=== PATIENT | male | born 1950 | race Two or more races ===

== ENCOUNTER 2022-07-10 11:00 | Inpatient (IN) | payer MEDICARE, OTHER ==
[~2022-07-10] VITALS: Ht 165.1 cm; Wt 56.7 kg
--- NOTE | 2022-07-10 11:05 | NUR ---
Receved pt 71 yrs male came from home c/o pain and inected wound in both lower extramity pt here for iv antbiotic
[2022-07-10] MEDS ORDERED: VANCOMYCIN 1 GM in IV D5W 250 ML IV ONE (11:30)
[2022-07-10] MEDS ORDERED: PIPERACILLIN /TAZOBACTAM 3.375 G in IV D5W 50 ML IV ONE (11:30)
--- NOTE | 2022-07-10 11:33 | NUR ---
safe technician at bedside
[2022-07-10 12:23] LABS: BASOPHILS # (AUTO) 0.1 K/uL (0.0-0.2); BASOPHILS % (AUTO) 0.7 % (0.0-2.0); EOSINOPHILS % (AUTO) 0.1 % (0.0-6.0); HEMATOCRIT 39 % (39-51); HEMOGLOBIN 12.7 g/dL (13.5-17.5); LYMPHOCYTES # (AUTO) 0.5 K/uL (0.8-4.8); LYMPHOCYTES % (AUTO) 4.7 % (20.0-44.0); MEAN CORPUSCULAR HGB CONC 32 g/dl (31.0-36.0); MEAN CORPUSCULAR VOLUME 92 fL (80-96); MONOCYTES # (AUTO) 0.8 K/uL (0.1-1.30); MONOCYTES % (AUTO) 6.6 % (2.0-12.0); NEUTROPHILS # (AUTO) 10.1 K/uL (1.8-8.9); NEUTROPHILS % (AUTO) 87.9 % (43.0-81.0); PLATELET COUNT (AUTO) 365 K/uL (150-450); RED BLOOD CELL COUNT(AUTO) 4.29 MIL/uL (4.5-6.0); WHITE BLOOD COUNT (AUTO) 11.5 K/uL (4.3-11.0)
--- NOTE | 2022-07-10 12:30 | NUR ---
[facility] CALLED BEE FARMER PAGED.
--- NOTE | 2022-07-10 12:30 | NUR ---
MOVE SHEET SUBMITTED.
[2022-07-10 12:49] LABS: ALBUMIN 3.4 g/dL (3.4-5.0); BILIRUBIN,DIRECT 0.1 mg/dL (0.0-0.2); BILIRUBIN,TOTAL 0.3 mg/dL (0.2-1.0); CALCIUM, SERUM 8.7 mg/dL (8.5-10.1); CREATININE 1.4 mg/dL (0.6-1.3); POTASSIUM 3.7 mmol/L (3.5-5.1); TOTAL PROTEIN, SERUM 7.2 g/dL (6.4-8.2)
--- NOTE | 2022-07-10 13:10 | NUR ---
RAPID COVID SWAB DONE AND SENT TO LAB
[2022-07-10] MEDS ORDERED: MORPHINE SULFATE INJ 2 MG/ML DISP.SYRIN IV PRN ×2 (13:30→16:45)
[2022-07-10] MEDS ORDERED: ONDANSETRON HCL/PF 4 MG/2 ML VIAL IVP PRN ×2 (13:30→16:45)
[2022-07-10] MEDS ORDERED: Z GUARD REMEDY 4 OZ OINT TP PRN ×2 (13:30→17:00)
[2022-07-10] MEDS ORDERED: hydrALAZINE HCL IV 20 MG VIAL IV PRN ×2 (13:30→16:45)
[2022-07-10] MEDS ORDERED: ACETAMINOPHEN 325 MG TABLET PO PRN ×2 (13:30→16:45)
[2022-07-10] MEDS: IV NS 0.9% 1,000 ML IV SCH (13:34)
--- NOTE | 2022-07-10 13:58 | NUR ---
RESTING AND COMFORTALE AT THIS TIME NO SOB
--- NOTE | 2022-07-10 15:09 | NUR ---
HAND OFF BRADLEY YUEN TO ROOM 328-2 VIA GARCARMITA STABLE VS NO FEVER
[2022-07-10] MEDS ORDERED: CEFTRIAXONE 2 G in IV D5W 100 ML IV SCH (16:00)
[2022-07-10] MEDS ORDERED: DOCUSATE SODIUM LIQ 100 MG/10 ML UDC PO SCH (17:00)
--- NOTE | 2022-07-10 19:00 | NUR ---
RN CLOSING NOTE PATIENT CAME FROM HOME BY [facility] FOR THE WOUND CARE AND FROM THERE HE WAS SENT TO [facility] FOR THE ANTIBIOTIC THERAPY DUE TO HIS LOWER EXTREMITIES ULCER. PATIENT HAS DVT ON BOTH LEGS AND ON HEPARIN. PATIENT ON REGULAR DIET. PATIENT'S IV SITE CODI 18G INTACT AND FLUSHING. PATIENT ALERT ORIENTED X4. AMBULATORY WITH LITHOPONE MILL WORKER TO BE MORE SAFE. ALL SAFETY PRECAUTIONS IMPLEMENTED AND WILL ENDORSE THE PATIENT TO THE PLEAT TAPER NURSE FOR ARIC.
[2022-07-10 20:00] VITALS: BP 152/62
--- NOTE | 2022-07-10 20:00 | NUR ---
RN CLOSING NOTE RECEIVED PATIENT AWAKE IN BED. A/O X 4. BREATING ON ROOM AIR, EVEN AND UNLABORED. PATIENT ON REGULAR DIET. PATIENT'S IV SITE CODI 18G INTACT AND FLUSHING. AMBULATORY WITH CUSTOMER CARE ASSISTANT TO BE MORE SAFE. ALL SAFETY PRECAUTIONS IMPLEMENTED, SIDE RAILS UP, BED LOWERED AND LOCKED. WILL CONTINUE TO MONITOR THROUGHOUT THE SHIFT. Addendum: 07/11/22 at 0704 by JOANNA NORTH RN RN OPENING NOTES
[2022-07-10] MEDS ORDERED: MEROPENEM 1 G in IV NS 0.9% 100 ML IV SCH (21:00)
[2022-07-10] MEDS ORDERED: HEPARIN SODIUM, PORCINE 5000 UNITS/1 ML VIAL SQ SCH (21:00)
[2022-07-10] MEDS: CEFTRIAXONE 2 G in IV D5W 100 ML IV SCH (21:13)
[2022-07-10] MEDS: HEPARIN SODIUM, PORCINE 5000 UNITS/1 ML VIAL SQ SCH (21:52)
[2022-07-11] VITALS: BP 144/75
[2022-07-11] MEDS ORDERED: VANCOMYCIN 500 MG in IV D5W 100 ML IV SCH ×2
[2022-07-11] MEDS: VANCOMYCIN 500 MG in IV D5W 100 ML IV SCH ×2 (00:07→12:24)
[2022-07-11] MEDS: IV NS 0.9% 1,000 ML IV SCH (02:41)
[2022-07-11 04:00] VITALS: BP 141/81
--- NOTE | 2022-07-11 07:05 | NUR ---
RN CLOSING NOTE PATIENT AWAKE IN BED. A/O X 4. BREATHING ON ROOM AIR, EVEN AND UNLABORED. PATIENT ON REGULAR DIET. PATIENT'S IV SITE CODI 18G INTACT AND FLUSHING. AMBULATORY WITH DEVULCANIZER OPERATOR TO BE MORE SAFE. ALL SAFETY PRECAUTIONS IMPLEMENTED, SIDE RAILS UP, BED LOWERED AND LOCKED. WILL ENDORSE TO NEXT SHIFT RN FOR ARIC.
[2022-07-11 08:00] VITALS: BP 129/74
[2022-07-11] MEDS: POLYETHYLENE GLYCOL 3350 17 GM POWD.PACK PO SCH (08:37)
[2022-07-11] MEDS: DOCUSATE SODIUM LIQ 100 MG/10 ML UDC PO SCH ×2 (08:37→17:09)
[2022-07-11] MEDS: HEPARIN SODIUM, PORCINE 5000 UNITS/1 ML VIAL SQ SCH (08:41)
[2022-07-11] MEDS ORDERED: POLYETHYLENE GLYCOL 3350 17 GM POWD.PACK PO SCH (09:00)
[2022-07-11 11:05] LABS: BASOPHILS % (AUTO) 0.8 % (0.0-2.0); EOSINOPHILS % (AUTO) 1.3 % (0.0-6.0); HEMATOCRIT 40 % (39-51); LYMPHOCYTES # (AUTO) 0.6 K/uL (0.8-4.8); MEAN CORPUSCULAR HGB CONC 32 g/dl (31.0-36.0); MEAN CORPUSCULAR VOLUME 92 fL (80-96); MONOCYTES # (AUTO) 0.6 K/uL (0.1-1.30); MONOCYTES % (AUTO) 9.3 % (2.0-12.0); NEUTROPHILS # (AUTO) 4.6 K/uL (1.8-8.9); NEUTROPHILS % (AUTO) 78.6 % (43.0-81.0); PLATELET COUNT (AUTO) 370 K/uL (150-450); WHITE BLOOD COUNT (AUTO) 5.9 K/uL (4.3-11.0)
[2022-07-11 11:14] LABS: CALCIUM, SERUM 8.5 mg/dL (8.5-10.1); CREATININE 1.4 mg/dL (0.6-1.3); POTASSIUM 3.7 mmol/L (3.5-5.1)
[2022-07-11] MEDS: APIXABAN 5 MG TABLET PO SCH ×2 (11:55→17:33)
[2022-07-11] MEDS: ENSURE ENLIVE CHOC 237 ML CAN PO SCH ×2 (12:02→17:10)
[2022-07-11 12:11] VITALS: BP 134/84
[2022-07-11 16:00] VITALS: BP 114/69
[2022-07-11] MEDS: CEFTRIAXONE 2 G in IV D5W 100 ML IV SCH (17:10)
[2022-07-11 20:00] VITALS: BP 121/66
--- NOTE | 2022-07-11 20:08 | NUR ---
APPRENTICE PAINTER HAND OPENING NOTES: RECEIVED PATIENT AWAKE IN BED , BED IN LOW POSITION CALL LIGHTS WITHIN REACH,. NO COMPLAIN OF PAIN AND DISCOMFORT AT THIS TIME, ON ROOM AIR SATURATING WELL, PATIENT IS A/OX4 ABLE TO MAKE NEEDS KNOWN,, AMBULATORY WITH ASSISTANCE, ON TELE MONITOR SR WITH PVC-60 NO SYMPTOMS WAS OBSERVED, PATIENT KEPT CLEAN AND DRY ALL NEEDS MET WILL CONTINUE TO MONITOR.
[2022-07-12] VITALS: BP 130/75
[2022-07-12 00:09] VITALS: BP 130/75
[2022-07-12] MEDS: VANCOMYCIN 500 MG in IV D5W 100 ML IV SCH (00:14)
[2022-07-12 04:00] VITALS: BP 128/89
[2022-07-12 05:53] LABS: BASOPHILS % (AUTO) 0.6 % (0.0-2.0); EOSINOPHILS % (AUTO) 3.4 % (0.0-6.0); HEMATOCRIT 38 % (39-51); HEMOGLOBIN 12.6 g/dL (13.5-17.5); LYMPHOCYTES # (AUTO) 0.8 K/uL (0.8-4.8); LYMPHOCYTES % (AUTO) 12.7 % (20.0-44.0); MEAN CORPUSCULAR HGB CONC 33 g/dl (31.0-36.0); MEAN CORPUSCULAR VOLUME 91 fL (80-96); MONOCYTES # (AUTO) 0.9 K/uL (0.1-1.30); MONOCYTES % (AUTO) 15.8 % (2.0-12.0); NEUTROPHILS % (AUTO) 67.5 % (43.0-81.0); PLATELET COUNT (AUTO) 331 K/uL (150-450); RED BLOOD CELL COUNT(AUTO) 4.14 MIL/uL (4.5-6.0)
--- NOTE | 2022-07-12 07:55 | NUR ---
HUC NOTES: PATIENT SLEEP IN BED COMFORTABLY AROUSABLE TO VERBAL STIMULI, BED IN LOW POSITION, CALL LIGHTS WITHIN REACH, ON TELE MONITOR,[id number], NO CHANGES WAS OBSERVED, BILATERAL LOWER EXTREMITY DRESSING INTACT, NO BLEEDING WAS OBSERVED, KEPT CLEAN AND DRY ALL NEEDS MET ENDORSE TO INCOMING SHIFT.
[2022-07-12 08:00] LABS: ALANINE AMINOTRANSFERASE 8 U/L (12-78); ALBUMIN 2.7 g/dL (3.4-5.0); ALKALINE PHOSPHATASE 62 U/L (46-116); ASPARTATE AMINOTRANSFERASE 11 U/L (15-37); BILIRUBIN,TOTAL 0.3 mg/dL (0.2-1.0); CALCIUM, SERUM 8.7 mg/dL (8.5-10.1); CARBON DIOXIDE 28 mmol/L (21-32); CREATININE 1.3 mg/dL (0.6-1.3); GLUCOSE 95 mg/dL (74-106); POTASSIUM 4.3 mmol/L (3.5-5.1); SODIUM SERUM 146 mmol/L (136-145); TOTAL PROTEIN, SERUM 6.3 g/dL (6.4-8.2); UREA NITROGEN, BLOOD 20 mg/dL (7-18)
--- NOTE | 2022-07-12 08:06 | NUR ---
TRUCK DRIVING INSTRUCTOR OPENING NOTE Patient in bed, awake. A/O x 4, able to make needs known. On room air, breathing evenly and unlabored. IV access on CODI SL, intact and patent. On tele monitoring showing SR, HR 67. Dressing on bilateral feet c/d/i. Safety precautions in place: be din low, locked position; siderails up x 2; call light within reach. Will continue to monitor.
[2022-07-12 08:22] VITALS: BP 120/71
[2022-07-12] MEDS: ENSURE ENLIVE CHOC 237 ML CAN PO SCH ×2 (08:42→12:07)
[2022-07-12] MEDS: APIXABAN 5 MG TABLET PO SCH (08:43)
[2022-07-12] MEDS: DOCUSATE SODIUM LIQ 100 MG/10 ML UDC PO SCH (08:45)
[2022-07-12] MEDS: POLYETHYLENE GLYCOL 3350 17 GM POWD.PACK PO SCH (08:45)
[2022-07-12 09:08] LABS: BAND % (MANUAL) 1 % (0.0-5.0); EOSINOPHILS % (MANUAL) 2 % (0-4); LYMPHOCYTES % (MANUAL) 10 % (16-48); MONOCYTES % (MANUAL) 11 % (0-11.0); NEUTROPHILS % (MANUAL) 76 (42-76)
[2022-07-12] MEDS ORDERED: SULF1TAB48 PO (10:03)
[2022-07-12] MEDS ORDERED: APIX5TAB PO (10:03)
[2022-07-12] MEDS ORDERED: VANCOMYCIN HCL 0.75 GM in IV D5W 250 ML IV SCH (12:00)
[2022-07-12 12:13] VITALS: BP 118/60
--- NOTE | 2022-07-12 15:02 | NUR ---
DISCHARGE NOTE Received order for discharge. Patient is A/O x 4, able to make needs known. Stable on room air, breathing evenly and unlabored. No SOB or s/s of distress noted. Discharge instructions given both verbally and in written form, verbalized understanding. All belongings accounted for, belonging sheet signed. Wound care done on bilateral ankles. Photos taken of wounds and placed in chart. IV access removed, pressure dressing applied. ID band removed. Patient denies any pain or discomfort at this time. Patient left in stable condition via private car.
== END 2022-07-12 14:59 | disposition home or self-care (01) | DRG 299 ==
LOC: ER 11:10 → MED 17:09 → TELE 07-11 03:33
PROVIDERS: ADMIT Internal Medicine; ATTEND Internal Medicine
DX: I87.312 Chronic venous hypertension (idiopathic) with ulcer of left lower extremity (principal); N17.0 Acute kidney failure with tubular necrosis; L03.115 Cellulitis of right lower limb; L97.319 Non-pressure chronic ulcer of right ankle with unspecified severity; L97.329 Non-pressure chronic ulcer of left ankle with unspecified severity; I82.512 Chronic embolism and thrombosis of left femoral vein; E87.0 Hyperosmolality and hypernatremia; L03.116 Cellulitis of left lower limb; N18.9 Chronic kidney disease, unspecified; I73.9 Peripheral vascular disease, unspecified; L30.9 Dermatitis, unspecified; Z79.01 Long term (current) use of anticoagulants; Z91.199 Patient's noncompliance with other medical treatment and regimen due to unspecified reason
CPT/HCPCS: 36415; 73610-TC; 73630-TC; 80048-TC; 80053-TC; 80076-TC; 80202-TC; 83605-TC; 85025-TC; 85652-TC; 86140-TC; 87040-TC; 87081-TC; 87806; 93970-TC; 97112-TC; 97116-TC; 97530-TC; A6253; C9803; G0378; J0696; J1644; J2543; J3370; J7030; J7060

== ENCOUNTER 2023-03-19 10:21 | Inpatient (IN) | payer MEDICARE, OTHER ==
[~2023-03-19] VITALS: Ht 175.3 cm; Wt 52.6 kg
[~2023-03-19 10:21] MED LIST: APIX5TAB PO; SULF1TAB48 PO
--- NOTE | 2023-03-19 10:30 | NUR ---
RECEIVED PT 72 YRS MALE FROM HOME C/O PAIN AND SWALLEN ON BOTH FOOT OZZING AND AND DRAING smilly and dry
--- NOTE | 2023-03-19 11:00 | NUR ---
AT BED SIDE
--- NOTE | 2023-03-19 11:16 | NUR ---
MOVE SHEET SUBMITTED.
[2023-03-19] MEDS ORDERED: PIPERACILLIN /TAZOBACTAM 3.375 G in IV D5W 50 ML IV ONE (11:30)
[2023-03-19] MEDS ORDERED: VANCOMYCIN 1 GM in IV D5W 250 ML IV ONE (11:30)
[2023-03-19 11:34] LABS: BASOPHILS # (AUTO) 0.1 K/uL (0.0-0.2); BASOPHILS % (AUTO) 0.7 % (0.0-2.0); EOSINOPHILS % (AUTO) 0.1 % (0.0-6.0); HEMATOCRIT 44 % (39-51); HEMOGLOBIN 14.4 g/dL (13.5-17.5); LYMPHOCYTES # (AUTO) 0.5 K/uL (0.8-4.8); LYMPHOCYTES % (AUTO) 4.6 % (20.0-44.0); MEAN CORPUSCULAR HGB CONC 33 g/dl (31.0-36.0); MEAN CORPUSCULAR VOLUME 93 fL (80-96); MONOCYTES # (AUTO) 0.9 K/uL (0.1-1.30); MONOCYTES % (AUTO) 9.2 % (2.0-12.0); NEUTROPHILS # (AUTO) 8.5 K/uL (1.8-8.9); NEUTROPHILS % (AUTO) 85.4 % (43.0-81.0); PLATELET COUNT (AUTO) 356 K/uL (150-450); RED BLOOD CELL COUNT(AUTO) 4.76 MIL/uL (4.5-6.0)
[2023-03-19 11:40] LABS: CALCIUM, SERUM 9.8 mg/dL (8.5-10.1); CARBON DIOXIDE 21 mmol/L (21-32); CHLORIDE 110 mmol/L (98-107); CREATININE 1.8 mg/dL (0.6-1.3); GLUCOSE 97 mg/dL (74-106); POTASSIUM 4.1 mmol/L (3.5-5.1); SODIUM SERUM 143 mmol/L (136-145); UREA NITROGEN, BLOOD 35 mg/dL (7-18)
[2023-03-19 11:48] LABS: ALANINE AMINOTRANSFERASE 11 U/L (12-78); ALBUMIN 4.1 g/dL (3.4-5.0); ALKALINE PHOSPHATASE 73 U/L (46-116); ASPARTATE AMINOTRANSFERASE 8 U/L (15-37); BILIRUBIN,DIRECT 0.1 mg/dL (0.0-0.2); BILIRUBIN,TOTAL 0.4 mg/dL (0.2-1.0); TOTAL PROTEIN, SERUM 8.3 g/dL (6.4-8.2)
[2023-03-19] MEDS ORDERED: MAGN400T8 PO (11:49)
[2023-03-19] MEDS ORDERED: CHOL100043 PO (11:49)
[2023-03-19] MEDS ORDERED: ASPI-992 PO (11:49)
[2023-03-19] MEDS ORDERED: ASCO100058 PO (11:49)
--- NOTE | 2023-03-19 14:13 | NUR ---
RESTING AND COMFORTABLE AT THIS TIME
--- NOTE | 2023-03-19 14:42 | NUR ---
HAND OFF MARJORIE RN TO ROOM 117-2 VIA GARNY STABLE VS AND AWAKE AND ALERT
--- NOTE | 2023-03-19 15:45 | NUR ---
RECEIVED PATIENT FROM ER VIA GURNEY. PT ALERT AND ORIENTED X 4, VERBALLY RESPONSIVE AND COOPERATIVE. BILATERAL LOWER EXTREMITIES CELLULITIS AND WOUNDS, PICTURES FILED IN THE CHART. PT IS ON RA, SAT 97%. IV ACCESS RIGHT AC, SALINE LOCKED. WILL START IV 1/2 NS AND ANTIBIOTIC. WILL CONTINUE TO MONITOR.
[2023-03-19] MEDS ORDERED: Z GUARD REMEDY 4 OZ OINT TP PRN (16:00)
[2023-03-19] MEDS ORDERED: ONDANSETRON HCL/PF 4 MG/2 ML VIAL IVP PRN (16:00)
[2023-03-19] MEDS ORDERED: MORPHINE SULFATE INJ 2 MG/ML DISP.SYRIN IV PRN (16:00)
[2023-03-19] MEDS: IV 1/2NS 1000 ML 1,000 ML IV PRN (16:21)
[2023-03-19] MEDS: CEFTRIAXONE 2 G in IV D5W 100 ML IV SCH (16:22)
[2023-03-19] MEDS ORDERED: CHOLECALCIFEROL 1,000 UNIT TABLET (VIT D3) PO SCH (16:30)
--- NOTE | 2023-03-19 19:23 | NUR ---
RN CLOSING NOTE PT AWAKE IN BED, ON RA, SAT 97%. IV ACCESS RIGHT AC, SALINE LOCKED. WILL START IV 1/2 NS AND ANTIBIOTIC. WILL CONTINUE TO MONITOR.
[2023-03-19] MEDS: HEPARIN SODIUM, PORCINE 5000 UNITS/1 ML VIAL SQ SCH (21:26)
[2023-03-19 23:47] VITALS: BP 114/68; TEMP 98.6; O2SAT 99
--- NOTE | 2023-03-20 03:42 | NUR ---
CANNOT OBTAIN A GOOD WOUND SAMPLE. PATIENT'S BILA. LOWER EXTREMITY WOUNDS DRY WITH NO DRAINAGE NOTED.
[2023-03-20 05:00] VITALS: BP 112/71; TEMP 97.6; O2SAT 100
[2023-03-20 06:21] LABS: BASOPHILS # (AUTO) 0.1 K/uL (0.0-0.2); BASOPHILS % (AUTO) 1.9 % (0.0-2.0); EOSINOPHILS % (AUTO) 4.4 % (0.0-6.0); HEMATOCRIT 39 % (39-51); HEMOGLOBIN 12.6 g/dL (13.5-17.5); LYMPHOCYTES # (AUTO) 0.9 K/uL (0.8-4.8); MEAN CORPUSCULAR HGB CONC 33 g/dl (31.0-36.0); MEAN CORPUSCULAR VOLUME 93 fL (80-96); MONOCYTES # (AUTO) 0.6 K/uL (0.1-1.30); MONOCYTES % (AUTO) 12.8 % (2.0-12.0); NEUTROPHILS % (AUTO) 62.9 % (43.0-81.0); PLATELET COUNT (AUTO) 287 K/uL (150-450); RED BLOOD CELL COUNT(AUTO) 4.17 MIL/uL (4.5-6.0); WHITE BLOOD COUNT (AUTO) 4.8 K/uL (4.3-11.0)
[2023-03-20 06:51] LABS: CHOLESTEROL 145 mg/dL (<200); HDL CHOLESTEROL 41 mg/dL (40-60); LDL 90 mg/dL (0-99); TRIGLYCERIDES 57 mg/dL (30-150)
[2023-03-20 06:53] LABS: CALCIUM, SERUM 8.9 mg/dL (8.5-10.1); CARBON DIOXIDE 24 mmol/L (21-32); CHLORIDE 110 mmol/L (98-107); CREATININE 1.2 mg/dL (0.6-1.3); GLUCOSE 95 mg/dL (74-106); MAGNESIUM 2.1 mg/dL (1.8-2.4); PHOSPHORUS 2.5 mg/dL (2.5-4.9); POTASSIUM 4.2 mmol/L (3.5-5.1); SODIUM SERUM 141 mmol/L (136-145); UREA NITROGEN, BLOOD 29 mg/dL (7-18)
[2023-03-20 06:59] LABS: C-REACTIVE PROTEIN < 0.2 mg/dL (0.0-0.9)
--- NOTE | 2023-03-20 07:06 | NUR ---
NOC RN NOTE CLOSING NOTE PATIENT IN BED, A/OX4. NO S/S OF APPARENT DISTRESS IN ROOM AIR, BREATHING EVEN AND UNLABORED. DENIES PAIN. IV 1/2 NS RUNNING @75MLS/HR. ALL NEEDS ATTENDED. ALL SCHEDULED MEDICATIONS ADMINISTERED. SAFETY KEPT IN PLACE THROUGHOUT SHIFT. WILL ENDORSE TO MORNING SHIFT RN FOR CONTINUITY OF PATIENT CARE.
--- NOTE | 2023-03-20 07:10 | NUR ---
RN OPENING NOTE PATIENT IN BED, ASLEEP, ON ROOM AIR, BREATHING EVEN AND UNLABORED. IV 1/2 NS RUNNING @75MLS/HR. SAFETY MEASURES IN PLACE, BED LOCKED AND IN LOWEST POSITION, CALL LIGHT WITHIN REACH, WILL CONTINUE TO MONITOR.
[2023-03-20] MEDS: PANTOPRAZOLE 40 MG TABLET.DR PO SCH (08:03)
[2023-03-20] MEDS: ASCORBIC ACID 500 MG TABLET PO SCH (08:25)
[2023-03-20] MEDS: HEPARIN SODIUM, PORCINE 5000 UNITS/1 ML VIAL SQ SCH ×2 (08:31→21:30)
[2023-03-20] MEDS ORDERED: VANCOMYCIN 1 GM in IV D5W 250ml IV SCH (11:00)
[2023-03-20] MEDS: IV 1/2NS 1000 ML 1,000 ML IV PRN (11:20)
[2023-03-20 13:00] VITALS: BP 109/68; TEMP 97.8; O2SAT 100
[2023-03-20] MEDS: CEFTRIAXONE 2 G in IV D5W 100 ML IV SCH (15:26)
--- NOTE | 2023-03-20 18:51 | NUR ---
RN CLOSING NOTE PATIENT IN BED, AWAKE, ON ROOM AIR, BREATHING EVEN AND UNLABORED. IV 1/2 NS RUNNING @75MLS/HR. ALL NEEDS ATTENDED, MEDS ADMINISTERED, SAFETY MEASURES IN PLACE, BED LOCKED AND IN LOWEST POSITION, CALL LIGHT WITHIN REACH, WILL ENDORSE TO THE CONCHE OPERATOR NURSE FOR ARIC.
--- NOTE | 2023-03-20 19:30 | NUR ---
PRE SALES ARCHITECT OPENING NOTE RECEIVED PATIENT IN BED A/OX4, NO S/S OF APPARENT DISTRESS IN ROOM AIR, BREATHING EVEN AND UNLABORED. PATIENT HAS IV ACCESS ON R.AC #18G RUNNING 1/2 NS @75MLS/HR. PATIENT BILATERAL LOWER EXTREMITY CELLULITIS, OPEN TO AIR. SAFETY IN PLACE-- BED IN LOWEST, LOCKED POSITION, SIDE RAILS UP X2, CALL LIGHT WITHIN REACH, BED ALARM IN PLACE. WILL CONTINUE WITH PATIENT'S PLAN OF CARE.
[2023-03-20 20:00] VITALS: BP 116/64; TEMP 97.6; O2SAT 100
[2023-03-20 21:00] VITALS: BP 116/64; TEMP 97.6; O2SAT 100
[2023-03-21 05:01] VITALS: BP 127/72; TEMP 97.6; O2SAT 100
--- NOTE | 2023-03-21 06:34 | NUR ---
HAND BANDER CLOSING NOTE PATIENT IN BED, A/OX4. NO S/S OF APPARENT DISTRESS IN ROOM AIR, BREATHING EVEN AND UNLABORED. DENIES PAIN. IV 1/2 NS RUNNING @75MLS/HR. ALL NEEDS ATTENDED. ALL SCHEDULED MEDICATIONS ADMINISTERED. SAFETY KEPT IN PLACE THROUGHOUT SHIFT. WILL ENDORSE TO MORNING SHIFT RN FOR CONTINUITY OF PATIENT CARE.
--- NOTE | 2023-03-21 07:10 | NUR ---
RN OPENING NOTE PATIENT IN BED, AWAKE, ON ROOM AIR, BREATHING EVEN AND UNLABORED. IV ACCESS RIGHT AC, 1/2NS RUNNING @75MLS/HR. SAFETY MEASURES IN PLACE, BED LOCKED AND IN LOWEST POSITION, CALL LIGHT WITHIN REACH, WILL CONTINUE TO MONITOR.
[2023-03-21] MEDS: PANTOPRAZOLE 40 MG TABLET.DR PO SCH (07:16)
[2023-03-21 07:23] LABS: BASOPHILS # (AUTO) 0.1 K/uL (0.0-0.2); BASOPHILS % (AUTO) 1.2 % (0.0-2.0); EOSINOPHILS % (AUTO) 4.5 % (0.0-6.0); HEMATOCRIT 40 % (39-51); HEMOGLOBIN 13.1 g/dL (13.5-17.5); LYMPHOCYTES # (AUTO) 0.8 K/uL (0.8-4.8); LYMPHOCYTES % (AUTO) 15.3 % (20.0-44.0); MEAN CORPUSCULAR HGB CONC 33 g/dl (31.0-36.0); MEAN CORPUSCULAR VOLUME 92 fL (80-96); MONOCYTES # (AUTO) 0.8 K/uL (0.1-1.30); MONOCYTES % (AUTO) 16.8 % (2.0-12.0); NEUTROPHILS # (AUTO) 3.1 K/uL (1.8-8.9); NEUTROPHILS % (AUTO) 62.2 % (43.0-81.0); PLATELET COUNT (AUTO) 296 K/uL (150-450); RED BLOOD CELL COUNT(AUTO) 4.31 MIL/uL (4.5-6.0)
[2023-03-21 07:59] LABS: CALCIUM, SERUM 8.9 mg/dL (8.5-10.1); CREATININE 1.2 mg/dL (0.6-1.3); MAGNESIUM 1.9 mg/dL (1.8-2.4); PHOSPHORUS 3.1 mg/dL (2.5-4.9); POTASSIUM 4.1 mmol/L (3.5-5.1)
[2023-03-21] MEDS: HEPARIN SODIUM, PORCINE 5000 UNITS/1 ML VIAL SQ SCH ×2 (08:24→20:43)
[2023-03-21] MEDS: ASCORBIC ACID 500 MG TABLET PO SCH (08:24)
[2023-03-21] MEDS: VANCOMYCIN 1.25 GM in IV D5W 250 ML IV SCH (10:52)
[2023-03-21 13:00] VITALS: BP 129/76; TEMP 97.9; O2SAT 100
[2023-03-21] MEDS: CEFTRIAXONE 2 G in IV D5W 100 ML IV SCH (15:25)
--- NOTE | 2023-03-21 19:24 | NUR ---
RN CLOSING NOTE PATIENT IN BED, AWAKE, ON ROOM AIR, BREATHING EVEN AND UNLABORED. IV ACCESS RIGHT AC, 1/2NS RUNNING @75MLS/HR. WOUND CARE PROVIDED, PATIENT EDUCATED REGARDING WOUND CARE AT HOME FOR TOMORROW DISCHARGE. SAFETY MEASURES IN PLACE, BED LOCKED AND IN LOWEST POSITION, CALL LIGHT WITHIN REACH, WILL ENDORSE TO THE NEXT SHIFT NURSE FOR ARIC.
--- NOTE | 2023-03-21 19:40 | NUR ---
UNDERGROUND DISTRIBUTION ENGINEER OPENING NOTE PATIENT RESTING IN BED, AWAKE A/O X4, ON ROOM AIR, BREATHING EVEN AND UNLABORED. IV ACCESS RIGHT AC, 1/2NS RUNNING @75MLS/HR. SAFETY MEASURES IN PLACE, BED LOCKED AND IN LOWEST POSITION, CALL LIGHT WITHIN REACH, WILL CONTINUE TO MONITOR.
[2023-03-21 21:00] VITALS: BP 118/71; TEMP 98; O2SAT 99
[2023-03-22] MEDS: IV 1/2NS 1000 ML 1,000 ML IV PRN (03:04)
[2023-03-22 04:00] VITALS: BP 135/82; TEMP 98.2; O2SAT 98
--- NOTE | 2023-03-22 06:40 | NUR ---
SENIOR COMMUNICATIONS SPECIALIST CLOSING NOTE PATIENT IN BED,SLEEPING, ON ROOM AIR, BREATHING EVEN AND UNLABORED, NO SOB NOTED AND TOLERATING WELL. O2 IS 99% AT THE MOMENT. IV ACCESS RIGHT AC, 1/2NS RUNNING @75MLS/HR INFUSING WELL. NO S/S OF INFILTRATION. DENIES PAIN. ALL DUE MEDS ARE GIVEN ORDERED. SAFETY MEASURES IN PLACE, BED LOCKED AND IN LOWEST POSITION, CALL LIGHT WITHIN REACH, SIDE RAILS UP X2. WILL ENDORSE CARE TO THE AM SHIFT RN.
--- NOTE | 2023-03-22 07:30 | NUR ---
Opening Note: Patient received awake, alert and oriented. Room air. Skin color normal for ethnicity. Dressings to bilateral lower legs c/d/i. Eating breakfast. Continent of bowel and bladder. Min assistance with ADL's. Possible discharge today. Will continue current POC.
[2023-03-22] MEDS: ASCORBIC ACID 500 MG TABLET PO SCH (08:49)
[2023-03-22] MEDS: PANTOPRAZOLE 40 MG TABLET.DR PO SCH (08:49)
[2023-03-22] MEDS: HEPARIN SODIUM, PORCINE 5000 UNITS/1 ML VIAL SQ SCH (08:51)
[2023-03-22] MEDS: VANCOMYCIN 1.25 GM in IV D5W 250 ML IV SCH (11:34)
[2023-03-22] MEDS ORDERED: DOXY-326 PO (11:41)
[2023-03-22] MEDS ORDERED: COLL30OI TP (11:41)
[2023-03-22] MEDS ORDERED: CEPH500C2 PO (11:41)
[2023-03-22 12:00] VITALS: BP 124/71; TEMP 98.2
[2023-03-22] MEDS ORDERED: ENSURE ENLIVE CHOC 237 ML CAN PO SCH (12:00)
[2023-03-22] MEDS ORDERED: THERAHONEY GEL 1.5 OZ TUBE TP SCH (12:00)
[2023-03-22] MEDS: CEFTRIAXONE 2 G in IV D5W 100 ML IV SCH (15:17)
--- NOTE | 2023-03-22 16:30 | NUR ---
Discharge Note: Patient discharged to home by himself via bus. No s/s of discomfort or distress. IV to right upper arm removed, tolerated well. Discharge/follow up pack provided and reviewed with the patient. Verbalized understanding. Dressing to bilateral lower legs changed before discharge. Provided wound supplies and demonstration of dressing change. All belongings sent with the patient.
== END 2023-03-22 16:30 | disposition home or self-care (01) | DRG 602 ==
LOC: ER 10:39 → MEDSG1 14:27
PROVIDERS: ADMIT Nurse Practitioner Family; ATTEND Nurse Practitioner Family
DX: L03.116 Cellulitis of left lower limb (principal); N17.0 Acute kidney failure with tubular necrosis; E87.20 Acidosis, unspecified; I87.313 Chronic venous hypertension (idiopathic) with ulcer of bilateral lower extremity; L97.829 Non-pressure chronic ulcer of other part of left lower leg with unspecified severity; L97.819 Non-pressure chronic ulcer of other part of right lower leg with unspecified severity; L03.115 Cellulitis of right lower limb; L60.3 Nail dystrophy; B35.1 Tinea unguium; Z79.82 Long term (current) use of aspirin; Z86.718 Personal history of other venous thrombosis and embolism; I87.2 Venous insufficiency (chronic) (peripheral); M20.11 Hallux valgus (acquired), right foot; N40.0 Benign prostatic hyperplasia without lower urinary tract symptoms
CPT/HCPCS: 36415; 73610-TC; 73630-TC; 76770-TC; 80048-TC; 80061-TC; 80076-TC; 80202-TC; 83605-TC; 83735-TC; 83880; 84100-TC; 85025-TC; 85652-TC; 86140-TC; 87040-TC; 93970-TC; A4223; A6253; A6403; G0378; J0696; J1644; J2543; J3370; J3490; J7030; J7060

== ENCOUNTER 2023-06-18 16:24 | Inpatient (IN) | payer MEDICARE, OTHER ==
[~2023-06-18] VITALS: Ht 175.3 cm; Wt 58.2 kg
[~2023-06-18 16:24] MED LIST changes: -APIX5TAB PO; +ASCO100058 PO; +ASPI-992 PO; +CEPH500C2 PO; +CHOL100043 PO; +COLL30OI TP; +DOXY-326 PO; +MAGN400T8 PO; -SULF1TAB48 PO
[2023-06-18] MEDS ORDERED: IV NS 0.9% 1,000 ML BAG IV ONE (17:00)
[2023-06-18 17:10] LABS: BASOPHILS # (AUTO) 0.1 K/uL (0.0-0.2); BASOPHILS % (AUTO) 1.3 % (0.0-2.0); EOSINOPHILS # (AUTO) 0.1 K/uL (0.0-0.7); EOSINOPHILS % (AUTO) 0.7 % (0.0-6.0); HEMATOCRIT 38 % (39-51); HEMOGLOBIN 12.4 g/dL (13.5-17.5); LYMPHOCYTES # (AUTO) 0.8 K/uL (0.8-4.8); LYMPHOCYTES % (AUTO) 9.5 % (20.0-44.0); MEAN CORPUSCULAR HEMOGLOBIN 30 PG (26.0-33.0); MEAN CORPUSCULAR HGB CONC 32 g/dl (31.0-36.0); MEAN CORPUSCULAR VOLUME 92 fL (80-96); MONOCYTES # (AUTO) 0.9 K/uL (0.1-1.30); MONOCYTES % (AUTO) 9.6 % (2.0-12.0); NEUTROPHILS % (AUTO) 78.9 % (43.0-81.0); PLATELET COUNT (AUTO) 439 K/uL (150-450); RED BLOOD CELL COUNT(AUTO) 4.18 MIL/uL (4.5-6.0); RED CELL DISTRIBUTION WIDTH 13.6 % (11.5-15.0); WHITE BLOOD COUNT (AUTO) 8.9 K/uL (4.3-11.0)
[2023-06-18 17:23] LABS: CALCIUM, SERUM 8.9 mg/dL (8.5-10.1); CARBON DIOXIDE 24 mmol/L (21-32); CHLORIDE 106 mmol/L (98-107); CREATININE 1.9 mg/dL (0.6-1.3); GLUCOSE 128 mg/dL (74-106); POTASSIUM 3.7 mmol/L (3.5-5.1); SODIUM SERUM 142 mmol/L (136-145); UREA NITROGEN, BLOOD 33 mg/dL (7-18)
[2023-06-18 17:24] LABS: INR 1.1 (0.91-1.10); PARTIAL THROMBOPLASTIN TIME 32.8 SEC (24.3-34.3); PROTHROMBIN TIME 11.6 SECS (9.2-11.1)
[2023-06-18 17:28] LABS: ALANINE AMINOTRANSFERASE 14 U/L (12-78); ALBUMIN 3.6 g/dL (3.4-5.0); ALKALINE PHOSPHATASE 76 U/L (46-116); ASPARTATE AMINOTRANSFERASE 11 U/L (15-37); BILIRUBIN,TOTAL 0.2 mg/dL (0.2-1.0); TOTAL PROTEIN, SERUM 8.3 g/dL (6.4-8.2)
[2023-06-18] MEDS ORDERED: VANCOMYCIN 1 GM in IV D5W 250 ML IV ONE (17:30)
[2023-06-18] MEDS ORDERED: CEFEPIME 1 GM in IV D5W 50 ML IV ONE (17:30)
[2023-06-18 17:31] LABS: LACTIC ACID 1.4 mmol/L (0.4-2.0)
[2023-06-18] MEDS ORDERED: ASCO100T12 PO (17:52)
[2023-06-18] MEDS ORDERED: MAGN500T2 PO (17:52)
[2023-06-18] MEDS ORDERED: ONDANSETRON HCL/PF 4 MG/2 ML VIAL IVP PRN (21:00)
[2023-06-18] MEDS ORDERED: ACETAMINOPHEN 325 MG TABLET PO PRN (21:00)
[2023-06-18] MEDS ORDERED: MAGNESIUM HYDROXIDE 30 ML UDC PO PRN (21:00)
[2023-06-18] MEDS ORDERED: MAG HYDROX/AL HYDROX/SIMETH 30 ML UDC PO PRN (21:00)
[2023-06-18 21:31] VITALS: BP 135/73; TEMP 98; O2SAT 96
[2023-06-18] MEDS: ENOXAPARIN SODIUM 30 MG/0.3 ML DISP.SYRIN SQ SCH (21:54)
[2023-06-18] MEDS: IV NS 0.9% 1,000 ML IV PRN (22:12)
[2023-06-19 04:00] VITALS: BP 106/67; TEMP 98.2; O2SAT 98
[2023-06-19] MEDS ORDERED: CEFEPIME 1 GM in IV D5W 50 ML IV ONE (06:00)
[2023-06-19] MEDS ORDERED: CEFEPIME 1 GM VIAL ONE (06:18)
[2023-06-19 07:23] LABS: BASOPHILS # (AUTO) 0.1 K/uL (0.0-0.2); BASOPHILS % (AUTO) 1.2 % (0.0-2.0); EOSINOPHILS # (AUTO) 0.3 K/uL (0.0-0.7); EOSINOPHILS % (AUTO) 4.7 % (0.0-6.0); HEMATOCRIT 32 % (39-51); HEMOGLOBIN 10.7 g/dL (13.5-17.5); LYMPHOCYTES % (AUTO) 14.3 % (20.0-44.0); MEAN CORPUSCULAR HEMOGLOBIN 30 PG (26.0-33.0); MEAN CORPUSCULAR HGB CONC 33 g/dl (31.0-36.0); MEAN CORPUSCULAR VOLUME 91 fL (80-96); MONOCYTES # (AUTO) 0.9 K/uL (0.1-1.30); MONOCYTES % (AUTO) 12.8 % (2.0-12.0); NEUTROPHILS # (AUTO) 4.7 K/uL (1.8-8.9); PLATELET COUNT (AUTO) 349 K/uL (150-450); RED BLOOD CELL COUNT(AUTO) 3.53 MIL/uL (4.5-6.0); RED CELL DISTRIBUTION WIDTH 13.5 % (11.5-15.0); WHITE BLOOD COUNT (AUTO) 7.1 K/uL (4.3-11.0)
[2023-06-19 07:30] LABS: CREATININE 1.3 mg/dL (0.6-1.3); MAGNESIUM 2.1 mg/dL (1.8-2.4); PHOSPHORUS 2.4 mg/dL (2.5-4.9); POTASSIUM 4.2 mmol/L (3.5-5.1)
[2023-06-19 10:00] VITALS: BP 128/72; TEMP 98; O2SAT 98
[2023-06-19] MEDS: VANCOMYCIN 0.75 GM in IV D5W 250 ML IV SCH (15:22)
[2023-06-19 16:00] VITALS: BP 111/69; TEMP 97.7; O2SAT 97
[2023-06-19] MEDS ORDERED: K PHOS NEUTRAL 250 MG TABLET PO ONE (17:00)
[2023-06-19 17:58] LABS: APPEARANCE,URINE CLEAR (CLEAR); BILIRUBIN,URINE NEGATIVE (NEGATIVE); BLOOD, URINE NEGATIVE Ery/uL (NEGATIVE); COLOR,URINE YELLOW (YELLOW); LEUKOCYTE ESTERASE ,URINE NEGATIVE (NEGATIVE); NITRITE, URINE NEGATIVE (NEGATIVE); PH,URINE 5.5 (5.0-8.0); PROTEIN,URINE NEGATIVE (NEGATIVE); UGLUCOSE NEGATIVE (NEGATIVE); UROBILINOGEN,URINE 0.2 EU/dL (0.2)
[2023-06-19] MEDS ORDERED: VANCOMYCIN 0.75 GM in IV D5W 250 ML IV SCH (18:00)
[2023-06-19 18:01] LABS: CREATININE, URINE 107.6 MG/DL (30.0-125.0); URINE TOTAL PROTEIN 30.3 mg/dL (0-11.9)
[2023-06-19 18:04] LABS: KETONES,URINE NEGATIVE (NEGATIVE)
[2023-06-19 18:41] LABS: EOSINOPHIL,URINE None Seen
[2023-06-19 20:50] VITALS: BP 125/78; TEMP 98.6; O2SAT 100
[2023-06-19] MEDS: ENOXAPARIN SODIUM 30 MG/0.3 ML DISP.SYRIN SQ SCH (21:41)
[2023-06-20] MEDS: IV NS 0.9% 1,000 ML IV PRN ×2 (00:27→14:17)
[2023-06-20] MEDS: VANCOMYCIN 0.75 GM in IV D5W 250 ML IV SCH ×2 (03:07→14:19)
[2023-06-20 04:21] VITALS: BP 118/20; TEMP 98; O2SAT 99
[2023-06-20 05:47] LABS: BASOPHILS % (AUTO) 0.8 % (0.0-2.0); EOSINOPHILS # (AUTO) 0.4 K/uL (0.0-0.7); EOSINOPHILS % (AUTO) 6.8 % (0.0-6.0); HEMATOCRIT 35 % (39-51); HEMOGLOBIN 11.4 g/dL (13.5-17.5); LYMPHOCYTES # (AUTO) 1.2 K/uL (0.8-4.8); LYMPHOCYTES % (AUTO) 20.6 % (20.0-44.0); MEAN CORPUSCULAR HEMOGLOBIN 30 PG (26.0-33.0); MEAN CORPUSCULAR HGB CONC 33 g/dl (31.0-36.0); MEAN CORPUSCULAR VOLUME 90 fL (80-96); MONOCYTES # (AUTO) 0.8 K/uL (0.1-1.30); MONOCYTES % (AUTO) 14.2 % (2.0-12.0); NEUTROPHILS # (AUTO) 3.3 K/uL (1.8-8.9); NEUTROPHILS % (AUTO) 57.6 % (43.0-81.0); PLATELET COUNT (AUTO) 347 K/uL (150-450); RED BLOOD CELL COUNT(AUTO) 3.85 MIL/uL (4.5-6.0); RED CELL DISTRIBUTION WIDTH 13.6 % (11.5-15.0); WHITE BLOOD COUNT (AUTO) 5.8 K/uL (4.3-11.0)
[2023-06-20 06:13] LABS: ALANINE AMINOTRANSFERASE 12 U/L (12-78); ALBUMIN 2.6 g/dL (3.4-5.0); ALKALINE PHOSPHATASE 53 U/L (46-116); ASPARTATE AMINOTRANSFERASE 9 U/L (15-37); BILIRUBIN,TOTAL 0.3 mg/dL (0.2-1.0); CALCIUM, SERUM 8.6 mg/dL (8.5-10.1); CARBON DIOXIDE 24 mmol/L (21-32); CHLORIDE 108 mmol/L (98-107); CREATININE 1.1 mg/dL (0.6-1.3); GLUCOSE 94 mg/dL (74-106); MAGNESIUM 2.1 mg/dL (1.8-2.4); PHOSPHORUS 3.3 mg/dL (2.5-4.9); SODIUM SERUM 139 mmol/L (136-145); TOTAL PROTEIN, SERUM 6.7 g/dL (6.4-8.2); UREA NITROGEN, BLOOD 19 mg/dL (7-18)
[2023-06-20 06:19] LABS: CREATINE KINASE, TOTAL 41 U/L (39-308)
[2023-06-20 12:00] VITALS: BP 123/70; TEMP 98.2; O2SAT 97
[2023-06-20] MEDS: ENOXAPARIN SODIUM 30 MG/0.3 ML DISP.SYRIN SQ SCH (21:15)
[2023-06-20 22:00] VITALS: BP 135/76; TEMP 98.4; O2SAT 99
[2023-06-21] MEDS: VANCOMYCIN 0.75 GM in IV D5W 250 ML IV SCH (03:00)
[2023-06-21 04:00] VITALS: BP 143/84; TEMP 97.7; O2SAT 100
[2023-06-21 05:56] LABS: BASOPHILS # (AUTO) 0.1 K/uL (0.0-0.2); EOSINOPHILS # (AUTO) 0.3 K/uL (0.0-0.7); EOSINOPHILS % (AUTO) 7.3 % (0.0-6.0); HEMATOCRIT 36 % (39-51); HEMOGLOBIN 11.7 g/dL (13.5-17.5); LYMPHOCYTES # (AUTO) 1.2 K/uL (0.8-4.8); LYMPHOCYTES % (AUTO) 25.2 % (20.0-44.0); MEAN CORPUSCULAR HEMOGLOBIN 30 PG (26.0-33.0); MEAN CORPUSCULAR HGB CONC 33 g/dl (31.0-36.0); MEAN CORPUSCULAR VOLUME 91 fL (80-96); MONOCYTES # (AUTO) 0.5 K/uL (0.1-1.30); MONOCYTES % (AUTO) 11.5 % (2.0-12.0); NEUTROPHILS # (AUTO) 2.5 K/uL (1.8-8.9); PLATELET COUNT (AUTO) 380 K/uL (150-450); RED BLOOD CELL COUNT(AUTO) 3.95 MIL/uL (4.5-6.0); RED CELL DISTRIBUTION WIDTH 13.3 % (11.5-15.0); WHITE BLOOD COUNT (AUTO) 4.7 K/uL (4.3-11.0)
[2023-06-21 06:44] LABS: CALCIUM, SERUM 8.8 mg/dL (8.5-10.1); CREATININE 1.2 mg/dL (0.6-1.3); POTASSIUM 4.1 mmol/L (3.5-5.1)
[2023-06-21 12:39] VITALS: BP 138/73; TEMP 98.6; O2SAT 100
[2023-06-21] MEDS ORDERED: CHOLECALCIFEROL 1,000 UNIT TABLET (VIT D3) PO SCH (13:59)
[2023-06-21] MEDS: VANCOMYCIN 500 MG in IV D5W 100ml IV SCH (15:06)
[2023-06-21 20:00] VITALS: BP 126/73; TEMP 98.6; O2SAT 100
[2023-06-21] MEDS: ENOXAPARIN SODIUM 30 MG/0.3 ML DISP.SYRIN SQ SCH (21:23)
[2023-06-22] MEDS: VANCOMYCIN 500 MG in IV D5W 100ml IV SCH ×2 (02:03→14:47)
[2023-06-22 04:00] VITALS: BP 126/76; TEMP 98.1; O2SAT 97
[2023-06-22 06:07] LABS: PTH, INTACT 20 pg/mL (15-65)
[2023-06-22 07:21] LABS: BASOPHILS # (AUTO) 0.1 K/uL (0.0-0.2); BASOPHILS % (AUTO) 2.9 % (0.0-2.0); EOSINOPHILS # (AUTO) 0.4 K/uL (0.0-0.7); EOSINOPHILS % (AUTO) 7.4 % (0.0-6.0); HEMATOCRIT 38 % (39-51); HEMOGLOBIN 12.2 g/dL (13.5-17.5); LYMPHOCYTES % (AUTO) 20.5 % (20.0-44.0); MEAN CORPUSCULAR HEMOGLOBIN 29 PG (26.0-33.0); MEAN CORPUSCULAR HGB CONC 32 g/dl (31.0-36.0); MEAN CORPUSCULAR VOLUME 91 fL (80-96); MONOCYTES # (AUTO) 0.6 K/uL (0.1-1.30); MONOCYTES % (AUTO) 11.3 % (2.0-12.0); NEUTROPHILS % (AUTO) 57.9 % (43.0-81.0); PLATELET COUNT (AUTO) 397 K/uL (150-450); RED BLOOD CELL COUNT(AUTO) 4.16 MIL/uL (4.5-6.0); RED CELL DISTRIBUTION WIDTH 13.5 % (11.5-15.0); WHITE BLOOD COUNT (AUTO) 5.1 K/uL (4.3-11.0)
[2023-06-22 07:54] LABS: CALCIUM, SERUM 8.6 mg/dL (8.5-10.1); CREATININE 1.1 mg/dL (0.6-1.3); POTASSIUM 4.1 mmol/L (3.5-5.1)
[2023-06-22] MEDS: MAGNESIUM OXIDE 400 MG TABLET PO SCH (08:36)
[2023-06-22] MEDS: ASCORBIC ACID 500 MG TABLET PO SCH (08:36)
[2023-06-22] MEDS: ASPIRIN 81 MG TAB.CHEW PO SCH (08:36)
[2023-06-22] MEDS: DAKINS QUARTER STRENGTH (0.125%) 480 ML BOTTLE TOP SCH (08:36)
[2023-06-22] MEDS: THERAHONEY GEL 1.5 OZ TUBE TP SCH (08:36)
[2023-06-22 12:15] VITALS: BP 122/82; TEMP 98.1; O2SAT 97
[2023-06-22 15:07] LABS: *SPE A/G RATIO 0.7 (0.7-1.7); *SPE ALBUMIN 2.6 g/dL (2.9-4.4); *SPE ALPHA-1-GLOBULIN 0.3 g/dL (0.0-0.4); *SPE ALPHA-2-GLOBULIN 0.8 g/dL (0.4-1.0); *SPE BETA GLOBULIN 0.9 g/dL (0.7-1.3); *SPE GLOBULIN, TOTAL 3.5 g/dL (2.2-3.9); *SPE M-SPIKE Not Observed g/dL (Not Observed); *SPE PROTEIN TOTAL 6.1 g/dL (6.0-8.5); *SPEGAMMA GLOBULIN 1.6 g/dL (0.4-1.8)
[2023-06-22] MEDS: ENSURE ENLIVE 237 ML LIQUID (VANILLA) PO SCH ×2 (17:22→21:00)
[2023-06-22 20:00] VITALS: BP 113/71; TEMP 98.4; O2SAT 98
[2023-06-22] MEDS: ENOXAPARIN SODIUM 30 MG/0.3 ML DISP.SYRIN SQ SCH (21:30)
[2023-06-23] MEDS: VANCOMYCIN 500 MG in IV D5W 100ml IV SCH ×2 (02:00→17:14)
[2023-06-23 04:00] VITALS: BP 115/70; TEMP 98.3; O2SAT 98
[2023-06-23 07:35] LABS: CALCIUM, SERUM 8.9 mg/dL (8.5-10.1); CARBON DIOXIDE 25 mmol/L (21-32); CHLORIDE 109 mmol/L (98-107); CREATININE 1.1 mg/dL (0.6-1.3); GLUCOSE 89 mg/dL (74-106); POTASSIUM 4.2 mmol/L (3.5-5.1); SODIUM SERUM 142 mmol/L (136-145); UREA NITROGEN, BLOOD 23 mg/dL (7-18)
[2023-06-23] MEDS ORDERED: LIDOCAINE HCL/MPF 1% 30 ML VIAL IJ ONE (08:37)
[2023-06-23] MEDS ORDERED: BUPIVACAINE 0.5 % PF 150 MG/30 ML VIAL ONE (08:37)
[2023-06-23] MEDS: DAKINS QUARTER STRENGTH (0.125%) 480 ML BOTTLE TOP SCH (09:00)
[2023-06-23] MEDS: THERAHONEY GEL 1.5 OZ TUBE TP SCH ×2 (09:00→17:14)
[2023-06-23] MEDS: ENSURE ENLIVE 237 ML LIQUID (VANILLA) PO SCH ×4 (09:00→23:30)
[2023-06-23] MEDS ORDERED: MIDAZOLAM HCL 2 MG/2ML VIAL ONE (09:42)
[2023-06-23] MEDS ORDERED: FENTANYL PF 100MCG/2ML AMPUL ONE ×2 (09:42)
[2023-06-23] MEDS ORDERED: POLYMYXIN B SULFATE 500,000 UNITS ONE (09:45)
[2023-06-23] MEDS: MAGNESIUM OXIDE 400 MG TABLET PO SCH (11:33)
[2023-06-23] MEDS: ASPIRIN 81 MG TAB.CHEW PO SCH (11:33)
[2023-06-23] MEDS: ASCORBIC ACID 500 MG TABLET PO SCH (11:33)
[2023-06-23 12:00] VITALS: BP 120/64; TEMP 97.9; O2SAT 99
[2023-06-23 20:00] VITALS: BP 109/74; TEMP 98.6; O2SAT 98
[2023-06-23] MEDS: ENOXAPARIN SODIUM 30 MG/0.3 ML DISP.SYRIN SQ SCH (21:36)
[2023-06-24] MEDS: VANCOMYCIN 500 MG in IV D5W 100ml IV SCH (03:57)
[2023-06-24 04:00] VITALS: BP 112/72; TEMP 98.2; O2SAT 98
[2023-06-24 07:40] LABS: CALCIUM, SERUM 8.9 mg/dL (8.5-10.1); CHLORIDE 108 mmol/L (98-107); CREATININE 1.2 mg/dL (0.6-1.3); GLUCOSE 82 mg/dL (74-106); POTASSIUM 4.2 mmol/L (3.5-5.1); SODIUM SERUM 142 mmol/L (136-145); UREA NITROGEN, BLOOD 31 mg/dL (7-18)
[2023-06-24 08:19] LABS: CARBON DIOXIDE 24 mmol/L (21-32)
[2023-06-24] MEDS: MAGNESIUM OXIDE 400 MG TABLET PO SCH (08:55)
[2023-06-24] MEDS: ASPIRIN 81 MG TAB.CHEW PO SCH (08:55)
[2023-06-24] MEDS: ASCORBIC ACID 500 MG TABLET PO SCH (08:55)
[2023-06-24] MEDS: ENSURE ENLIVE 237 ML LIQUID (VANILLA) PO SCH ×2 (08:56→14:25)
[2023-06-24] MEDS: THERAHONEY GEL 1.5 OZ TUBE TP SCH ×2 (09:00)
[2023-06-24] MEDS: DAKINS QUARTER STRENGTH (0.125%) 480 ML BOTTLE TOP SCH (09:00)
[2023-06-24] MEDS ORDERED: LEVO500T90 PO (10:16)
[2023-06-24] MEDS ORDERED: ACID1TAB12 PO (10:16)
[2023-06-24 13:14] VITALS: BP 112/72; TEMP 97.9; O2SAT 100
== END 2023-06-24 15:20 | disposition home or self-care (01) | DRG 264 ==
LOC: ER 16:33 → TELE1 20:01 → MEDSG1 21:47
PROVIDERS: ADMIT Nurse Practitioner Acute Care; ATTEND Nurse Practitioner Acute Care
PROC: 0JBP0ZZ Excision of Left Lower Leg Subcutaneous Tissue and Fascia, Open Approach (ICD-10-PCS; 2023-06-21)
PROC: 0JBN0ZZ Excision of Right Lower Leg Subcutaneous Tissue and Fascia, Open Approach (ICD-10-PCS; 2023-06-21)
PROC: 0JBP0ZZ Excision of Left Lower Leg Subcutaneous Tissue and Fascia, Open Approach (ICD-10-PCS; 2023-06-22)
PROC: 0JBN0ZZ Excision of Right Lower Leg Subcutaneous Tissue and Fascia, Open Approach (ICD-10-PCS; 2023-06-22)
PROC: 0JBP0ZZ Excision of Left Lower Leg Subcutaneous Tissue and Fascia, Open Approach (ICD-10-PCS; principal; 2023-06-23)
PROC: 0JBN0ZZ Excision of Right Lower Leg Subcutaneous Tissue and Fascia, Open Approach (ICD-10-PCS; 2023-06-23)
DX: I87.333 Chronic venous hypertension (idiopathic) with ulcer and inflammation of bilateral lower extremity (principal); E43 Unspecified severe protein-calorie malnutrition; N17.0 Acute kidney failure with tubular necrosis; L03.115 Cellulitis of right lower limb; R64 Cachexia; L97.929 Non-pressure chronic ulcer of unspecified part of left lower leg with unspecified severity; L97.919 Non-pressure chronic ulcer of unspecified part of right lower leg with unspecified severity; E87.20 Acidosis, unspecified; L97.818 Non-pressure chronic ulcer of other part of right lower leg with other specified severity; L97.828 Non-pressure chronic ulcer of other part of left lower leg with other specified severity; L03.116 Cellulitis of left lower limb; D63.8 Anemia in other chronic diseases classified elsewhere; L98.0 Pyogenic granuloma; Z79.82 Long term (current) use of aspirin; Z86.718 Personal history of other venous thrombosis and embolism; Z88.6 Allergy status to analgesic agent; N13.9 Obstructive and reflux uropathy, unspecified; M62.50 Muscle wasting and atrophy, not elsewhere classified, unspecified site
CPT/HCPCS: 36415; 71045-TC; 80048-TC; 80053-TC; 80076-TC; 80202-TC; 82550-TC; 82570-TC; 83605-TC; 83735-TC; 83970; 84100-TC; 84155; 84165; 84300-TC; 85025-TC; 85730-TC; 86850-TC; 87040-TC; 97112-TC; 97116-TC; 97530-TC; A4223; A6253; A6403; G0378; J0692; J1650; J2250; J2704; J3010; J3370; J3490; J7030; J7050; J7060

== ENCOUNTER 2023-10-15 15:19 | Inpatient (IN) | payer MEDICARE, OTHER ==
[~2023-10-15] VITALS: Ht 175.3 cm; Wt 56.2 kg
[~2023-10-15 15:19] MED LIST changes: +ACID1TAB12 PO; -ASCO100058 PO; +ASCO100T12 PO; -CEPH500C2 PO; -COLL30OI TP; -DOXY-326 PO; +LEVO500T90 PO; -MAGN400T8 PO; +MAGN500T2 PO
[2023-10-15] MEDS ORDERED: PIPERACI/TAZO 3.375GM/D5W 50ML PB IV ONE (16:50)
[2023-10-15] MEDS ORDERED: VANCOMYCIN 1 GM /D5W 250 ML PB IV ONE (16:51)
[2023-10-15] MEDS: IV NS 0.9% 1,000 ML BAG IV ONE (16:52)
[2023-10-15] MEDS: PIPERACILLIN /TAZOBACTAM 3.375 G in IV D5W 50 ML IV ONE (16:52)
[2023-10-15 17:05] LABS: BASOPHILS % (AUTO) 0.5 % (0.0-2.0); EOSINOPHILS % (AUTO) 0.4 % (0.0-6.0); HEMATOCRIT 42 % (39-51); HEMOGLOBIN 13.8 g/dL (13.5-17.5); LYMPHOCYTES # (AUTO) 0.6 K/uL (0.8-4.8); LYMPHOCYTES % (AUTO) 8.3 % (20.0-44.0); MEAN CORPUSCULAR HEMOGLOBIN 30 PG (26.0-33.0); MEAN CORPUSCULAR HGB CONC 33 g/dl (31.0-36.0); MEAN CORPUSCULAR VOLUME 91 fL (80-96); MONOCYTES # (AUTO) 0.6 K/uL (0.1-1.30); MONOCYTES % (AUTO) 8.8 % (2.0-12.0); NEUTROPHILS # (AUTO) 5.9 K/uL (1.8-8.9); PLATELET COUNT (AUTO) 325 K/uL (150-450); RED BLOOD CELL COUNT(AUTO) 4.61 MIL/uL (4.5-6.0); WHITE BLOOD COUNT (AUTO) 7.2 K/uL (4.3-11.0)
[2023-10-15] MEDS ORDERED: ASCO500T21 PO (17:14)
[2023-10-15 17:17] LABS: INR 1.08 (0.91-1.10); PARTIAL THROMBOPLASTIN TIME 31.3 SEC (24.3-34.3); PROTHROMBIN TIME 11.4 SECS (9.2-11.1)
[2023-10-15] MEDS: VANCOMYCIN 1 GM in IV D5W 250 ML IV ONE (17:19)
[2023-10-15 17:41] LABS: CALCIUM, SERUM 9.4 mg/dL (8.5-10.1); CARBON DIOXIDE 23 mmol/L (21-32); CHLORIDE 106 mmol/L (98-107); CREATININE 1.5 mg/dL (0.6-1.3); GLUCOSE 107 mg/dL (74-106); POTASSIUM 3.7 mmol/L (3.5-5.1); SODIUM SERUM 144 mmol/L (136-145); UREA NITROGEN, BLOOD 30 mg/dL (7-18)
[2023-10-15 17:45] LABS: ALANINE AMINOTRANSFERASE 21 U/L (12-78); ALKALINE PHOSPHATASE 75 U/L (46-116); ASPARTATE AMINOTRANSFERASE 15 U/L (15-37); BILIRUBIN,DIRECT 0.1 mg/dL (0.0-0.2); BILIRUBIN,TOTAL 0.3 mg/dL (0.2-1.0); TOTAL PROTEIN, SERUM 8.4 g/dL (6.4-8.2)
[2023-10-15 17:49] LABS: LACTIC ACID 1.1 mmol/L (0.4-2.0)
[2023-10-15 20:55] VITALS: BP 144/79; TEMP 98.8; O2SAT 97
[2023-10-15] MEDS ORDERED: MAGNESIUM HYDROXIDE 30 ML UDC PO PRN (22:30)
[2023-10-15] MEDS ORDERED: HYDROCODONE/APAP 5/325MG TABLET PO PRN (22:30)
[2023-10-15] MEDS ORDERED: Z GUARD REMEDY 4 OZ OINT TP PRN (22:30)
[2023-10-15] MEDS ORDERED: ONDANSETRON HCL/PF 4 MG/2 ML VIAL IVP PRN (22:30)
[2023-10-15] MEDS ORDERED: MAG HYDROX/AL HYDROX/SIMETH 30 ML UDC PO PRN (22:30)
[2023-10-15] MEDS ORDERED: ACETAMINOPHEN 325 MG TABLET PO PRN ×2 (22:30→23:00)
[2023-10-15] MEDS ORDERED: ZOLPIDEM TARTRATE 5 MG TABLET PO PRN (22:30)
[2023-10-15] MEDS: IV 1/2NS 1000 ML 1,000 ML IV PRN (22:54)
[2023-10-15] MEDS: ENOXAPARIN SODIUM 40 MG/0.4 ML DISP.SYRIN SQ SCH (23:20)
[2023-10-16 06:41] LABS: BASOPHILS # (AUTO) 0.1 K/uL (0.0-0.2); BASOPHILS % (AUTO) 1.2 % (0.0-2.0); EOSINOPHILS # (AUTO) 0.2 K/uL (0.0-0.7); EOSINOPHILS % (AUTO) 2.7 % (0.0-6.0); HEMATOCRIT 37 % (39-51); HEMOGLOBIN 12.3 g/dL (13.5-17.5); LYMPHOCYTES # (AUTO) 1.1 K/uL (0.8-4.8); LYMPHOCYTES % (AUTO) 16.8 % (20.0-44.0); MEAN CORPUSCULAR HEMOGLOBIN 30 PG (26.0-33.0); MEAN CORPUSCULAR HGB CONC 33 g/dl (31.0-36.0); MEAN CORPUSCULAR VOLUME 90 fL (80-96); MONOCYTES # (AUTO) 0.9 K/uL (0.1-1.30); NEUTROPHILS # (AUTO) 4.3 K/uL (1.8-8.9); NEUTROPHILS % (AUTO) 65.3 % (43.0-81.0); PLATELET COUNT (AUTO) 295 K/uL (150-450); RED CELL DISTRIBUTION WIDTH 14.8 % (11.5-15.0); WHITE BLOOD COUNT (AUTO) 6.6 K/uL (4.3-11.0)
[2023-10-16 07:09] LABS: CALCIUM, SERUM 8.7 mg/dL (8.5-10.1); CARBON DIOXIDE 22 mmol/L (21-32); CHLORIDE 111 mmol/L (98-107); CREATININE 1.4 mg/dL (0.6-1.3); GLUCOSE 86 mg/dL (74-106); MAGNESIUM 2.3 mg/dL (1.8-2.4); PHOSPHORUS 2.8 mg/dL (2.5-4.9); POTASSIUM 4.5 mmol/L (3.5-5.1); SODIUM SERUM 142 mmol/L (136-145); UREA NITROGEN, BLOOD 23 mg/dL (7-18)
[2023-10-16] MEDS: PANTOPRAZOLE 40 MG TABLET.DR PO SCH (07:54)
[2023-10-16 08:00] VITALS: BP 129/77; TEMP 99.1; O2SAT 98
[2023-10-16 09:17] LABS: CHOLESTEROL 143 mg/dL (<200); TRIGLYCERIDES 43 mg/dL (30-150)
[2023-10-16 09:18] LABS: HDL CHOLESTEROL 56 mg/dL (40-60); LDL 79 mg/dL (0-99); THYROID STIMULATING HORMONE 2.003 uIU/mL (0.358-3.74)
[2023-10-16] MEDS: VANCOMYCIN 1 GM in IV D5W 250 ML IV SCH (15:13)
[2023-10-16 16:00] VITALS: BP 126/75; TEMP 98.6; O2SAT 97
[2023-10-16 20:00] VITALS: BP 149/76; TEMP 99.1; O2SAT 97
[2023-10-16] MEDS ORDERED: VITAMINS A AND D 56.7 GM TUBE TP PRN (21:00)
[2023-10-17 07:00] VITALS: BP 136/84; TEMP 97.9; O2SAT 97
[2023-10-17 08:02] LABS: CALCIUM, SERUM 8.8 mg/dL (8.5-10.1); CREATININE 1.2 mg/dL (0.6-1.3); POTASSIUM 4.1 mmol/L (3.5-5.1)
[2023-10-17 16:00] VITALS: BP 126/81; TEMP 98.6; O2SAT 100
[2023-10-17 21:29] VITALS: BP 133/80; TEMP 99; O2SAT 98
[2023-10-18 07:00] VITALS: BP 125/81; TEMP 97.7
[2023-10-18 07:26] LABS: CARBON DIOXIDE 26 mmol/L (21-32); CHLORIDE 108 mmol/L (98-107); CREATININE 1.2 mg/dL (0.6-1.3); GLUCOSE 83 mg/dL (74-106); POTASSIUM 4.1 mmol/L (3.5-5.1); SODIUM SERUM 142 mmol/L (136-145); UREA NITROGEN, BLOOD 17 mg/dL (7-18)
[2023-10-18 16:00] VITALS: BP 123/74; TEMP 99.1; O2SAT 97
[2023-10-18] MEDS: ENSURE ENLIVE 237 ML LIQUID (VANILLA) PO SCH (17:04)
[2023-10-18 20:00] VITALS: BP 120/69; TEMP 98.8; O2SAT 98
[2023-10-19 07:47] LABS: CARBON DIOXIDE 25 mmol/L (21-32); CHLORIDE 107 mmol/L (98-107); CREATININE 1.3 mg/dL (0.6-1.3); GLUCOSE 91 mg/dL (74-106); POTASSIUM 4.2 mmol/L (3.5-5.1); SODIUM SERUM 141 mmol/L (136-145); UREA NITROGEN, BLOOD 28 mg/dL (7-18)
[2023-10-19 08:00] VITALS: BP 137/78; TEMP 97.7; O2SAT 100
[2023-10-19] MEDS: VANCOMYCIN HCL 1.25 GM in IV D5W 250 ML IV SCH (11:03)
[2023-10-19 16:00] VITALS: BP 118/74; TEMP 98.8; O2SAT 98
[2023-10-19 20:00] VITALS: BP 109/65; TEMP 98.2; O2SAT 98
[2023-10-20 07:07] LABS: BASOPHILS # (AUTO) 0.1 K/uL (0.0-0.2); BASOPHILS % (AUTO) 1.1 % (0.0-2.0); EOSINOPHILS # (AUTO) 0.2 K/uL (0.0-0.7); EOSINOPHILS % (AUTO) 4.3 % (0.0-6.0); HEMATOCRIT 39 % (39-51); HEMOGLOBIN 12.8 g/dL (13.5-17.5); LYMPHOCYTES # (AUTO) 1.1 K/uL (0.8-4.8); LYMPHOCYTES % (AUTO) 20.7 % (20.0-44.0); MEAN CORPUSCULAR HEMOGLOBIN 30 PG (26.0-33.0); MEAN CORPUSCULAR HGB CONC 33 g/dl (31.0-36.0); MEAN CORPUSCULAR VOLUME 90 fL (80-96); MONOCYTES # (AUTO) 0.8 K/uL (0.1-1.30); MONOCYTES % (AUTO) 15.6 % (2.0-12.0); NEUTROPHILS % (AUTO) 58.3 % (43.0-81.0); PLATELET COUNT (AUTO) 304 K/uL (150-450); RED BLOOD CELL COUNT(AUTO) 4.32 MIL/uL (4.5-6.0); RED CELL DISTRIBUTION WIDTH 14.6 % (11.5-15.0); WHITE BLOOD COUNT (AUTO) 5.1 K/uL (4.3-11.0)
[2023-10-20 07:11] LABS: CALCIUM, SERUM 9.1 mg/dL (8.5-10.1); CARBON DIOXIDE 27 mmol/L (21-32); CHLORIDE 107 mmol/L (98-107); CREATININE 1.2 mg/dL (0.6-1.3); GLUCOSE 95 mg/dL (74-106); POTASSIUM 4.1 mmol/L (3.5-5.1); SODIUM SERUM 142 mmol/L (136-145); UREA NITROGEN, BLOOD 31 mg/dL (7-18)
[2023-10-20 07:30] VITALS: BP_SYST 127; BP_SYST 94; BP_DIAS 48; BP_DIAS 75; TEMP 97.6; TEMP 98.4; O2SAT 98; O2SAT 99
[2023-10-20 16:00] VITALS: BP 114/67; TEMP 99.1; O2SAT 97
[2023-10-20 20:00] VITALS: BP 111/69; TEMP 98.2; O2SAT 98
[2023-10-21 06:58] LABS: EOSINOPHILS # (AUTO) 0.2 K/uL (0.0-0.7); EOSINOPHILS % (AUTO) 4.4 % (0.0-6.0); HEMATOCRIT 41 % (39-51); HEMOGLOBIN 13.6 g/dL (13.5-17.5); LYMPHOCYTES # (AUTO) 1.1 K/uL (0.8-4.8); LYMPHOCYTES % (AUTO) 22.6 % (20.0-44.0); MEAN CORPUSCULAR HEMOGLOBIN 30 PG (26.0-33.0); MEAN CORPUSCULAR HGB CONC 33 g/dl (31.0-36.0); MEAN CORPUSCULAR VOLUME 90 fL (80-96); MONOCYTES # (AUTO) 0.8 K/uL (0.1-1.30); MONOCYTES % (AUTO) 16.8 % (2.0-12.0); NEUTROPHILS # (AUTO) 2.7 K/uL (1.8-8.9); NEUTROPHILS % (AUTO) 55.2 % (43.0-81.0); PLATELET COUNT (AUTO) 312 K/uL (150-450); RED BLOOD CELL COUNT(AUTO) 4.57 MIL/uL (4.5-6.0); RED CELL DISTRIBUTION WIDTH 14.4 % (11.5-15.0)
[2023-10-21 07:06] LABS: CALCIUM, SERUM 9.2 mg/dL (8.5-10.1); CARBON DIOXIDE 28 mmol/L (21-32); CHLORIDE 106 mmol/L (98-107); CREATININE 1.2 mg/dL (0.6-1.3); GLUCOSE 91 mg/dL (74-106); SODIUM SERUM 140 mmol/L (136-145); UREA NITROGEN, BLOOD 31 mg/dL (7-18)
[2023-10-21 07:30] VITALS: BP 132/73; TEMP 98.8; O2SAT 97
[2023-10-21] MEDS ORDERED: DOXY-326 PO (11:10)
[2023-10-21] MEDS ORDERED: LACT-246 PO (11:10)
[2023-10-21] MEDS ORDERED: PANT40TA49 PO (11:10)
[2023-10-21 11:57] LABS: BASOPHILS % (MANUAL) 0 % (0.0-2.0); EOSINOPHILS % (MANUAL) 6 % (0-4); LYMPHOCYTES % (MANUAL) 17 % (16-48); MONOCYTES % (MANUAL) 14 % (0-11.0); NEUTROPHILS % (MANUAL) 63 (42-76); PLATELET ESTIMATE ADEQUATE
== END 2023-10-21 14:26 | disposition home or self-care (01) | DRG 197 ==
LOC: ER 15:27 → MED 20:15
PROVIDERS: ATTEND Nurse Practitioner Acute Care
PROC: 0JBP0ZZ Excision of Left Lower Leg Subcutaneous Tissue and Fascia, Open Approach (ICD-10-PCS; principal; 2023-10-16)
PROC: 0JBN0ZZ Excision of Right Lower Leg Subcutaneous Tissue and Fascia, Open Approach (ICD-10-PCS; 2023-10-16)
DX: I87.313 Chronic venous hypertension (idiopathic) with ulcer of bilateral lower extremity (principal); N17.0 Acute kidney failure with tubular necrosis; L03.115 Cellulitis of right lower limb; L97.818 Non-pressure chronic ulcer of other part of right lower leg with other specified severity; L97.828 Non-pressure chronic ulcer of other part of left lower leg with other specified severity; L03.116 Cellulitis of left lower limb; N18.30 Chronic kidney disease, stage 3 unspecified; E88.9 Metabolic disorder, unspecified; D64.9 Anemia, unspecified; Z79.82 Long term (current) use of aspirin; I87.2 Venous insufficiency (chronic) (peripheral); L98.8 Other specified disorders of the skin and subcutaneous tissue; J34.89 Other specified disorders of nose and nasal sinuses
CPT/HCPCS: 36415; 70540; 71045-TC; 80048-TC; 80061-TC; 80076-TC; 80202-TC; 83605-TC; 83735-TC; 84100-TC; 84443-TC; 85025-TC; 85730-TC; 87040-TC; A4223; A6403; G0378; J1650; J2543; J3370; J3490; J7030; J7060

== ENCOUNTER 2023-11-11 11:31 | Inpatient (IN) | payer OTHER, MEDICARE ==
[~2023-11-11] VITALS: Ht 175.3 cm; Wt 51.5 kg
[~2023-11-11 11:31] MED LIST changes: -ACID1TAB12 PO; -ASCO100T12 PO; +ASCO500T21 PO; -ASPI-992 PO; +DOXY-326 PO; +LACT-246 PO; -LEVO500T90 PO; +PANT40TA49 PO
[2023-11-11] MEDS ORDERED: MIDAZOLAM HCL 2 MG/2ML VIAL ONE (13:06)
[2023-11-11] MEDS ORDERED: FENTANYL PF 100MCG/2ML AMPUL ONE (13:06)
[2023-11-11] MEDS ORDERED: FAMOTIDINE/PF INJ 20 MG/2 ML VIAL IV ONE (13:06)
[2023-11-11] MEDS ORDERED: BUPIVACAINE 0.5 % PF 150 MG/30 ML VIAL ONE (13:22)
[2023-11-11] MEDS ORDERED: LIDOCAINE 1%-EPI 1:100,000 20 ML VIAL ONE (13:22)
[2023-11-11] MEDS ORDERED: LIDOCAINE 1% INJ 50 ML MDV IJ ONE (13:22)
[2023-11-11] MEDS ORDERED: BACITRACIN ZINC OINT PACKET 1 EA PACKET TP ONE (13:23)
[2023-11-11] MEDS ORDERED: BACITRACIN/POLYMYXIN B 15 GM TUBE TP ONE (14:34)
[2023-11-11] MEDS: BACITRACIN/POLYMYXIN B 15 GM TUBE TP SCH (15:00)
[2023-11-11 16:00] VITALS: BP 120/80; TEMP 98.2; O2SAT 100
[2023-11-11] MEDS ORDERED: HYDROCODONE/APAP 10/325MG TABLET PO PRN (17:30)
[2023-11-11] MEDS ORDERED: ACETAMINOPHEN 325 MG TABLET PO PRN (17:30)
[2023-11-11] MEDS ORDERED: ZOLPIDEM TARTRATE 5 MG TABLET PO PRN (17:30)
[2023-11-11] MEDS ORDERED: HYDROCODONE/APAP 5/325MG TABLET PO PRN (17:30)
[2023-11-11] MEDS ORDERED: ONDANSETRON HCL/PF 4 MG/2 ML VIAL IVP PRN (17:30)
[2023-11-11] MEDS ORDERED: MAG HYDROX/AL HYDROX/SIMETH 30 ML UDC PO PRN (17:30)
[2023-11-11] MEDS ORDERED: MAGNESIUM HYDROXIDE 30 ML UDC PO PRN (17:30)
[2023-11-11] MEDS ORDERED: Z GUARD REMEDY 4 OZ OINT TP PRN (17:30)
[2023-11-11 20:00] VITALS: BP 136/80; TEMP 98.2; O2SAT 99
[2023-11-12 07:36] LABS: BASOPHILS % (AUTO) 0.7 % (0.0-2.0); EOSINOPHILS # (AUTO) 0.2 K/uL (0.0-0.7); EOSINOPHILS % (AUTO) 2.6 % (0.0-6.0); HEMATOCRIT 38 % (39-51); HEMOGLOBIN 12.4 g/dL (13.5-17.5); LYMPHOCYTES # (AUTO) 0.9 K/uL (0.8-4.8); MEAN CORPUSCULAR HEMOGLOBIN 30 PG (26.0-33.0); MEAN CORPUSCULAR HGB CONC 33 g/dl (31.0-36.0); MEAN CORPUSCULAR VOLUME 91 fL (80-96); MONOCYTES # (AUTO) 0.8 K/uL (0.1-1.30); MONOCYTES % (AUTO) 12.5 % (2.0-12.0); NEUTROPHILS # (AUTO) 4.3 K/uL (1.8-8.9); NEUTROPHILS % (AUTO) 70.2 % (43.0-81.0); PLATELET COUNT (AUTO) 236 K/uL (150-450); RED BLOOD CELL COUNT(AUTO) 4.14 MIL/uL (4.5-6.0); RED CELL DISTRIBUTION WIDTH 14.9 % (11.5-15.0); WHITE BLOOD COUNT (AUTO) 6.2 K/uL (4.3-11.0)
[2023-11-12 08:00] VITALS: BP 135/80; TEMP 98.6; O2SAT 97
[2023-11-12] MEDS ORDERED: CHOLECALCIFEROL 1,000 UNIT TABLET (VIT D3) GT SCH (09:00)
[2023-11-12] MEDS: ASCORBIC ACID 500 MG TABLET PO SCH (09:02)
[2023-11-12] MEDS: MAGNESIUM OXIDE 400 MG TABLET PO SCH (09:02)
[2023-11-12] MEDS: PANTOPRAZOLE 40 MG TABLET.DR PO SCH (09:02)
[2023-11-12] MEDS: CHOLECALCIFEROL 1,000 UNIT TABLET (VIT D3) PO SCH (09:06)
[2023-11-12 16:11] VITALS: BP 136/86; TEMP 99.3; O2SAT 97
== END 2023-11-12 18:42 | disposition home or self-care (01) | DRG 385 ==
LOC: DS 11:31 → MED 16:31
PROVIDERS: ADMIT Nurse Practitioner Acute Care; ATTEND Nurse Practitioner Acute Care
PROC: 0HB1XZX Excision of Face Skin, External Approach, Diagnostic (ICD-10-PCS; principal; 2023-11-11)
DX: C44.311 Basal cell carcinoma of skin of nose (principal); D63.8 Anemia in other chronic diseases classified elsewhere; N18.30 Chronic kidney disease, stage 3 unspecified
CPT/HCPCS: 36415; 85025-TC; A4223; G0378; J0690; J2250; J2405; J2704; J3010; J3490; J7030